=== PATIENT | female | born 1965 | race African-American/Black ===

== ENCOUNTER 2020-11-02 23:39 | Emergency (ER) | payer MEDICAID ==
[~2020-11-02] VITALS: Ht 165.1 cm; Wt 50.0 kg
[2020-11-03] MEDS ORDERED: LISINOPRIL 40MG TABLET PO ONE (00:15)
[2020-11-03 02:07] LABS: BASOPHILS % 1.6 % (0.0-2.0); HEMATOCRIT. 39.6 % (36.0-48.0); HEMOGLOBIN. 13.2 g/dL (12.0-16.0); LYMPHOCYTES % 38.2 % (20.0-50.0); MEAN CORPUSCULAR HEMOGLOBIN 29.3 pg (28.0-32.0); MEAN CORPUSCULAR VOLUME 87.6 fL (81.0-99.0); MEAN PLATELET VOLUME 7.6 fl (7.4-10.4); NEUTROPHILS % 45.2 % (40.0-76.0); PLATELET 289 x1000/uL (130-400); RED BLOOD CELL COUNT 4.52 mill/uL (4.2-5.4); RED CELL DISTRIBUTION WIDTH 17.1 % (11.6-14.6)
[2020-11-03 02:13] LABS: CHLORIDE 111 mEq/L (98-107)
[2020-11-03 02:16] LABS: ETHANOL BLOOD < 10 mg/dL
[2020-11-03 02:42] VITALS: BP 149/98
== END 2020-11-03 02:54 | disposition home or self-care (01) ==
LOC: ER 23:39
DX: I10 Essential (primary) hypertension (principal)
CPT/HCPCS: 36415; 80053; 80320; 85025; 93005; 99284; G0480